=== PATIENT | female | born 1960 | race Caucasian/White ===

== ENCOUNTER 2017-12-06 08:52 | Outpatient (CLI) | payer BC ==
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
== END 2017-12-06 08:53 | disposition home or self-care (01) ==
LOC: TBSIIMAG 08:52
PROVIDERS: ATTEND Neurological Surgery
DX: M47.22 Other spondylosis with radiculopathy, cervical region (principal); M43.13 Spondylolisthesis, cervicothoracic region
CPT/HCPCS: 72040

== ENCOUNTER 2018-01-13 10:35 | Outpatient (CLI) | payer BC ==
[2018-01-13 12:31] LABS: Hemoglobin 13.3 g/dL (12.0-16.0); Mean Corpuscular HGB CONC 34.4 g/dL (32.0-36.0); Mean Corpuscular Hemoglobin 31.7 pg (27.0-31.0); Mean Corpuscular Volume 92.2 fL (78.0-98.0); Platelet Count 171 thou/uL (130-400); RBC Distribution Width 10.9 % (11.5-14.5); Red Blood Cell (RBC) Count 4.18 mill/uL (4.20-5.40); White Blood Cell (WBC) Count 7.7 thou/uL (4.8-10.8)
[2018-01-13 12:42] LABS: INR-International Normal Ratio 1.1; PTT 35.6 SEC (22.9-36.1); Prothrombin Time 13.9 SEC (12.0-14.7)
== END 2018-01-13 10:36 | disposition home or self-care (01) ==
LOC: LABBT 10:35
PROVIDERS: ATTEND Neurological Surgery
DX: Z01.812 Encounter for preprocedural laboratory examination (principal); M50.10 Cervical disc disorder with radiculopathy, unspecified cervical region; M48.02 Spinal stenosis, cervical region
CPT/HCPCS: 85027; 85610; 85730

== ENCOUNTER 2018-01-21 10:26 | Observation (INO) | payer BC ==
[2018-01-13 11:13] VITALS: BMI 22.4
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
[2018-01-21] MEDS ORDERED: CEFAZOLIN/Water 2 GM/20 ML SYRINGE ONE (11:30)
[2018-01-21] MEDS ORDERED: Sodium Chloride 0.9% 10 ML ONE (12:20)
[2018-01-21] MEDS ORDERED: Thrombin 5000 UNITS/5 ML VIAL ONE (12:20)
[2018-01-21] MEDS ORDERED: Fentanyl 100 MCG/2 ML VIAL ONE ×4 (12:47→16:15)
[2018-01-21] MEDS ORDERED: Midazolam HCl 2 mg/2 ml Vial ONE (12:48)
[2018-01-21] MEDS ORDERED: Glycopyrrolate 0.2 MG/ML 5 ML SYRINGE ONE (15:04)
[2018-01-21] MEDS ORDERED: Dexamethasone 20 MG/5 ML VIAL ONE (15:04)
[2018-01-21] MEDS ORDERED: Ondansetron HCl/PF 4 MG/2 ML Vial ONE (15:04)
[2018-01-21] MEDS ORDERED: Vecuronium 10 MG VIAL ONE (15:04)
[2018-01-21] MEDS ORDERED: PROPOFOL 200 MG/20 ML VIAL ONE (15:04)
[2018-01-21] MEDS ORDERED: Ketorolac Tromethamine 30 MG/ML VIAL ONE (15:04)
[2018-01-21] MEDS ORDERED: Lidocaine 1% PF 5 ML VIAL ONE (15:04)
[2018-01-21] MEDS ORDERED: HYDROmorphone 0.5 MG/0.5 ML SYRINGE ONE (16:43)
[2018-01-21] MEDS ORDERED: Promethazine HCl 25 MG/ML VIAL ONE (17:38)
[2018-01-21] MEDS ORDERED: Bisacodyl 10 MG SUPP PR PRN (18:34)
[2018-01-21] MEDS ORDERED: Zolpidem Tartrate 5 MG TAB PO PRN (18:34)
[2018-01-21] MEDS ORDERED: traMADol HCl 50 MG TAB PO PRN ×2 (18:34)
[2018-01-21] MEDS ORDERED: Promethazine HCl 12.5 MG SUPP PR PRN (18:34)
[2018-01-21] MEDS ORDERED: Morphine 4 MG/ML Carpuject SLOW IVP PRN (18:34)
[2018-01-21] MEDS ORDERED: Mag-Al 1200 mg/1200 mg/30 ML UDCUP PO PRN (18:34)
[2018-01-21] MEDS ORDERED: Milk Of Magnesia 30 ML UDCUP PO PRN (18:34)
[2018-01-21] MEDS ORDERED: Acetaminophen/Codeine 30-300mg Tablet PO PRN (18:34)
[2018-01-21] MEDS ORDERED: Fleet Enema 133 ML BOT PR PRN (18:34)
[2018-01-21] MEDS ORDERED: diphenhydrAMINE 25 MG CAP PO PRN (18:34)
[2018-01-21] MEDS ORDERED: Prochlorperazine 10 MG/2 ML VIAL IM PRN (18:34)
[2018-01-21] MEDS ORDERED: Promethazine HCl 25 MG/ML VIAL IM PRN (18:34)
[2018-01-21] MEDS ORDERED: Acetaminophen 650 MG Suppository PR PRN (18:34)
[2018-01-21] MEDS ORDERED: Acetaminophen 325 MG TAB PO PRN (18:34)
[2018-01-21] MEDS ORDERED: diphenhydrAMINE 50 MG/ML VIAL IVP PRN (18:34)
[2018-01-21] MEDS ORDERED: Promethazine 25 MG TAB PO PRN (18:34)
[2018-01-21] MEDS: Multivitamin W/ Minerals 1 TAB PO SCH (21:25)
[2018-01-21] MEDS: Lactinex Tablet PO SCH (21:25)
[2018-01-21] MEDS: Sodium Chloride 0.9% 1,000 ML IV SCH (21:26)
[2018-01-21] MEDS ORDERED: CEFAZOLIN/Water 2 GM/20 ML SYRINGE SLOW IVP SCH (22:00)
--- NOTE | 2018-01-21 22:45 | OP ---
DATE OF PROCEDURE: 01/21/2018 PERFORMED BY: Salvador Vang M.D. [employer]: Virginia Nelson PA-C PREOPERATIVE INDICATION: Treat pain, prevent neurological deterioration. PREOPERATIVE DIAGNOSES: Intervertebral disk disease with resulting cervical spinal stenosis and radi culopathy, C4-5, C5-6 and C6-7. POSTOPERATIVE DIAGNOSES: Intervertebral disk disease with resulting cervical spinal stenosis and rad iculopathy, C4-C5 C5-C6 and C6-C7. OPERATIVE PROCEDURES: Anterior cervical diskectomy, intervertebral arthrodesis, placement of interve rtebral biomechanical devices at C4-5, C5-6, C6-7, anterior cervical plating C4-5, C5-C6, C6-C7, loca l morselized autograft, morselized Allograft, and operating microscope. PREOPERATIVE MEDICATION: Ancef 2 grams IV. DRAIN NUMBER: Zero. DRAIN TYPE: None. OPERATIVE DICTATION: The patient was brought to the operating room. General endotracheal anesthesia was induced. Patient was positioned supine on the operating table with her head supported by a gel- filled donut shaped head rest and a lateral fluoro radiograph was used to plan our incision. The rig ht side of the neck was sterilely prepped and draped. We opened with a 10 blade knife and controlled bleeding with bipolar cautery. We dissected sharply to the platysma and cut this muscle in line wit h our incision. We continued our dissection medial to the sternocleidomastoid, lateral to the trache a and esophagus all the way down to the prevertebral space. We placed a marker at the C4-5 interspac e and took a lateral fluoro radiograph to confirm the levels upon which we were operating. We then e levated the longus colli muscles off the anterior surface of C4, C5, C6, and C7 and placed in the lat eral retractor underneath the muscles. We placed distraction pins at C4 and C6 and distracted across both of the intervening interspaces. We incised the interspaces with a 15 blade knife and removed d isk contents using curettes and rongeurs. As we approached the posterior longitudinal ligament, the operative microscope was brought in the field. Under microscopic magnification and using microsurgical techniques, we removed the remainder of the i ntervertebral disk and accessed the ventral epidural space with a micro curette and using [place] ro ngjackelyn, we removed the posterior longitudinal ligament across the entire interspace from one neural f oramen all the way to the other. With complete decompression of the dura from nerve root to nerve ro ot and across the interspace at both C4-5 and C5-6 with then turned our attention to arthrodesis. Using bone curettes, we prepared the endplates for grafting. We measured the height of the interspac e at C5-6 to 6 mm and at C4-5 to 7 mm. Two separate PEEK intervertebral grafts were brought into the field. These were loaded with demineralized bone matrix and morselized autograft and advanced into the interspaces under radiographic guidance to the appropriate depth. The autograft was obtained fro m anterior and posterior osteophytes, removed during our decompression. This bone was cleaned of all soft tissue attachments, morselized and added to demineralized bone matrix as our part of the fusion substrate. With the interbody grafts in place, we removed the distraction pin from C4 and placed it at C7. We moved out laterally, retracted the C6-7 and we distracted from the C6 distraction pin acr oss the interspace at the C7 distraction pin. We incised the interspace with a 15 blade knife and re moved disk contents using curettes and rongeurs. We removed the remainder of the intervertebral disk and accessed the ventral epidural space with a micro curette and using Kerrison rongeurs, we removed the posterior longitudinal ligament across the entire interspace from one neural foramen to the othe r. We decompressed the dura from one nerve root across the entire interspace to the other and then p repared the endplates for grafting with curettes. We measured the height of the interspace to 8 mm a nd brought an 8 mm PEEK intervertebral graft into the field. This was loaded with our mixture of dem ineralized bone matrix and morselized autograft and advanced into the interspace under radiographic g uidance to the appropriate depth. We then brought a 45 mm anterior cervical plate into the field. W e drilled commercial airplane pilot holes through the plate into the vertebral bodies at C4, C5, C6, and C7 and we affixe d the plate using 14 mm screws. We used variable angle screws above and fixed angle screws at C7. W e engaged the locking mechanism over each of the 8 screws. We irrigated copiously with bacitracin ir rigation. We took AP and lateral fluoro radiographs to confirm adequate positioning of all instrumen tation. We then closed the wound in anatomic layers and we applied a sterile dressing. This was a c lean case and no contamination.
[2018-01-22] MEDS: tiZANidine HCl 4 MG TAB PO PRN ×2 (02:53→10:49)
[2018-01-22] MEDS ORDERED: Morphine 4 MG/ML VIAL SLOW IVP PRN (04:31)
[2018-01-22] MEDS: Acetaminophen/Codeine 30-300mg Tablet PO PRN ×2 (06:49→10:17)
[2018-01-22 08:06] VITALS: BP 122/82; TEMP 98.6
[2018-01-22] MEDS: Sodium Chloride 0.9% 1,000 ML IV SCH (08:44)
[2018-01-22] MEDS: Multivitamin W/ Minerals 1 TAB PO SCH (08:51)
[2018-01-22] MEDS: Lactinex Tablet PO SCH (08:51)
--- NOTE | 2018-01-22 13:17 | PRG ---
DATE OF SERVICE: 01/22/2018 Ms. Thakkar is postoperative from ACDF performed yesterday. She is doing very well with improvement i n her arm symptoms. Her wound is healing well and she has excellent strength neurologically. She is tolerating oral feeds and with mild dysphonia, appears to be doing very well. We went over postoper ative issues and we will plan for dismissal home.
== END 2018-01-22 11:12 | disposition home or self-care (01) ==
LOC: SDC 10:26 → SURG A 18:10
PROVIDERS: ADMIT Neurological Surgery; ATTEND Neurological Surgery
PROC: 0RG20A0 Fusion of 2 or more Cervical Vertebral Joints with Interbody Fusion Device, Anterior Approach, Anterior Column, Open Approach (ICD-10-PCS; principal; 2018-01-21)
PROC: 0RG2070 Fusion of 2 or more Cervical Vertebral Joints with Autologous Tissue Substitute, Anterior Approach, Anterior Column, Open Approach (ICD-10-PCS; 2018-01-21)
PROC: 0RT30ZZ Resection of Cervical Vertebral Disc, Open Approach (ICD-10-PCS; 2018-01-21)
DX: M50.121 Cervical disc disorder at C4-C5 level with radiculopathy (principal); M48.02 Spinal stenosis, cervical region; Z85.41 Personal history of malignant neoplasm of cervix uteri; Z85.828 Personal history of other malignant neoplasm of skin; Z79.899 Other long term (current) drug therapy
CPT/HCPCS: 76001; 96374; 96375; 96376; A4216; C1713; C1776; G0378; J1100; J1170; J1885; J2001; J2250; J2270; J2405; J2550; J2704; J3010; J3490; L0172

== ENCOUNTER 2018-03-24 08:30 | Outpatient (CLI) | payer BC ==
--- NOTE | 2018-03-24 10:14 | RAD ---
CERVICAL SPINE SERIES THREE VIEWS: HISTORY: Followup of neck surgery. COMPARISON: 12/06/2017 FINDINGS: The patient has undergone anterior cervical fusion. There has been placement of a plate and screws, which extends from C4 to C7. Markers from disk implants are within the confines of the intervening d isk levels. The upper implant has the marker along the very posterior margin of the C4-C5 level. IMPRESSION: Postoperative changes of the spine. POS: Shane
== END 2018-03-24 08:31 | disposition home or self-care (01) ==
LOC: TBSIIMAG 08:30
PROVIDERS: ATTEND Neurological Surgery
DX: M54.2 Cervicalgia (principal); Z98.1 Arthrodesis status
CPT/HCPCS: 72040

== ENCOUNTER 2018-06-08 08:05 | Outpatient (CLI) | payer OTHER ==
--- NOTE | 2018-06-08 10:30 | RAD ---
THREE VIEWS CERVICAL SPINE: History: Voice is scratchy. Cervical radiculopathy. Patient had a recent cervical surgery. Comparison: 03-24-18 FINDINGS: Lateral views of the cervical spine were performed in neutral, flexion and extension. The patient is status post anterior fusion of C4 through C7 with an anterior plate and screws. Intervening disc spac es are seen. There is questionable lucency surrounding the screws at C6, which is unchanged. No preve rtebral soft tissue swelling is seen. The plate is still well opposed to the vertebral bodies. The ve rtebral bodies demonstrate normal alignment without subluxation. The alignment is unchanged with flex ion and extension. IMPRESSION: Post-surgical changes of the cervical spine as above. POS: BRIGHT
--- NOTE | 2018-06-08 10:37 | MRI ---
MRI CERVICAL SPINE WITHOUT CONTRAST: 06/08/2018 HISTORY: Cervical radiculopathy. COMPARISON: None. TECHNIQUE: Multiplanar, multisequence MR imaging of the cervical spine provided without contrast. FINDINGS: There is extensive anterior diskectomy and fusion hardware extending from the C4 through C7 levels. The sagittal STIR imaging demonstrates no focal area of osseous marrow edema. There is no anterolist hesis or retrolisthesis noted within the cervical spine. There is mild degenerative change at the atlantoaxial interspace. The craniocervical junction appear s intact. C2-C3: No significant central canal or neural foraminal stenosis. C3-C4: No significant central canal or neural foraminal stenosis. C4-C5: No central canal or neural foraminal stenosis. C5-C6: No significant central canal stenosis. Bilateral uncovertebral osteophyte formation with pro bable mild bilateral neural foraminal stenosis. C6-C7: Uncovertebral osteophyte formation on the left with probable mild left neural foraminal steno sis. No central canal or right neural foraminal stenosis. C7-T1: No significant central canal or neural foraminal stenosis. The cervical cord demonstrates no abnormal signal intensity. IMPRESSION: Status post multilevel anterior diskectomy and fusion. No significant central canal stenosis. POS: SHERYL
== END 2018-06-08 08:06 | disposition home or self-care (01) ==
LOC: TBSIIMAG 08:05
PROVIDERS: ATTEND Neurological Surgery
DX: M54.12 Radiculopathy, cervical region (principal); L90.5 Scar conditions and fibrosis of skin; Z98.890 Other specified postprocedural states
CPT/HCPCS: 72040; 72141